=== PATIENT | male | born 1975 | race African-American/Black ===

== ENCOUNTER 2016-03-21 17:03 | Emergency (ER) | payer OTHER ==
[~2016-03-21] VITALS: Ht 170.2 cm; Wt 87.1 kg
[~2016-03-21 17:03] MED LIST: CYCLOBENZAPRINE5 M2 PO; PERCOCET 5-3251 EACH PO
[2016-03-21 17:18] VITALS: BP 153/89
--- NOTE | 2016-03-21 18:21 | ED UPPER/LOWER EXTREMITY COMPL ---
History of Present Illness General Chief Complaint: Lower Extremity Problems Stated Complaint: LEG PAIN XS 1 MONTH Source: patient Exam Limitations: no limitations Vital Signs & Intake/Output Vital Signs & Intake/Output Vital Signs Date Time Temp Pulse Resp B/P Pulse O2 O2 Flow FiO2 Ox Delivery Rate 03/21 1718 99.1 86 20 153/89 96 Room Air Allergies Coded Allergies: NO KNOWN ALLERGIES (03/21/16) Reconcile Medications Cyclobenzaprine HCl 5 MG TABLET 1 TAB PO TID PRN muscle spasm Meloxicam (Mobic) 15 MG TABLET 1 TAB PO DAILY PRN PAIN Methylprednisolone. (Medrol) 4 MG TAB.DS.PK 1 DP PO AD INFLAMMATION 6 on day 1 then reduce by one tablet daily until gone Oxycodone HCl/Acetaminophen (Percocet 5-325 MG Tablet) 1 EACH TABLET 1 TAB PO BID pain Triage Note: TRIAGE: PT TO ER C/C PAIN FROM R BUTTOCK TO CALF X 2 MONTHS, CONSTANT SINCE ONSET. TAKING TYLENOL AND MOTRIN WITH NO RELIEF. NO KNOWN INJURY. Triage Nurses Notes Reviewed? yes Onset: Gradual Duration: constant Severity: moderate Severity Numbers: 5 Method of Injury: unknown HPI: Patient is a 40-year-old male who presents emergency room with a 2 month history of intermittent right leg pain that radiates from his buttock region to the back of his leg down his foot. Patient denies any mechanism of injury. Patient does state that he has complaints of intermittent paresthesias in his foot. Denies any bowel or bladder incontinence or saddle paresthesia. Does complain of chronic intermittent back pain however currently denies any significant back pain. Denies any abdominal pain nausea vomiting or leg swelling. (JASON YO) Past History Travel History Traveled to [place] past 21 day No Medical History Any Pertinent Medical History? 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 No (JASON YO) Review of Systems Review of Systems Constitutional: Reports: no symptoms. EENTM: Reports: no symptoms. Respiratory: Reports: no symptoms. Cardiovascular: Reports: no symptoms. Gastrointestinal/Abdominal: Reports: no symptoms. Genitourinary: Reports: no symptoms. Musculoskeletal: Reports: see HPI, back pain. Skin: Reports: no symptoms. Neurological/Psychological: Reports: see HPI. Hematologic/Endocrine: Reports: no symptoms. Immunological: Reports: no symptoms. All Other Systems: Reviewed and Negative (JASON YO) Physical Exam Physical Exam General Appearance: no apparent distress, alert, comfortable Comments: Well-developed well-nourished person in no acute distress HEENT: Normal EENT exam, extraocular motion intact, no nystagmus. Pupils equally round and reactive to light and accommodation. Nose is atraumatic. External auditory canal and Tympanic membranes clear. Pharynx normal. No swelling or edema. Neck: Supple, no lymphadenopathy, normal range of motion without pain or tenderness Back: Nontender, no CVA tenderness. No central spinous tenderness Cardiovascular: Regular rate and rhythms no murmurs rubs or gallops, normal JVP Respiratory: Chest nontender. No respiratory distress.breath sounds clear to auscultation bilaterally Abdomen: Soft, nontender nondistended, no appreciable organomegaly. Normal bowel sounds. No ascites Extremity: No edema, no calf tenderness to palpation, normal and equal pulses. Neuro: Alert oriented x3, motor sensory normal, cranial nerves II through XII grossly intact. Bilateral lower extremity myotomes dermatomes DTRs intact Positive straight leg raise test Skin: No appreciable rash on exposed skin, skin is warm and dry. Psych: Mood and affect is normal, memory and judgment is normal. (JASON YO) Progress Differential Diagnosis: arterial insufficiency, compartment syndrome, contusion, dislocation, DVT, fracture, gout, septic arthritis, sprain, tendon injury, sPINAL ABSCESS, HERNIATED DISC, SCIATICA, FRACTURE, Plan of Care: Due to history of present illness and exam findings or suspicion of lumbar radiculopathy. Patient had normal steady gait on discharge. Patient was strongly advised to follow-up with primary care doctor as this was referred to patient in the emergency room Patient has no concerns of CUADA EQUINA SYNDROME (JASON YO) Departure Departure Disposition: HOME OR SELF CARE Condition: Stable Clinical Impression Primary Impression: Lumbar radiculopathy Referrals: PATIENT HAS NO PRIMARY CARE DR (PCP/Family) Additional Instructions: As discussed please avoid bending your back forward as this may worsen your symptoms. Begin the prescription of meloxicam for pain and inflammation and a prescription of Medrol Dosepak for inflammation. You have been given a primary care doctor's appointment in the emergency room, please go to this appointment to establish a doctor and for follow-up. If symptoms worsen return to emergency room. Prescriptions are waiting at the [facility] pharmacy Departure Forms: Customer Survey General Discharge Information Prescriptions: Current Visit Scripts Meloxicam (Mobic) 1 TAB PO DAILY PRN PAIN #20 TAB Methylprednisolone. (Medrol) 1 DP PO AD #1 DP 6 on day 1 then reduce by one tablet daily until gone (JASON YO) PA/FRAMEMAN Co-Sign Statement Statement: ED Attending supervision documentation- [] I saw and evaluated the patient. I have also reviewed all the pertinent lab results and diagnostic results. I agree with the findings and the plan of care as documented in the PA's/FRAMEMAN's documentation. [X] I have reviewed the ED Record and agree with the PA's/FRAMEMAN's documentation. [] Additions or exceptions (if any) to the PAs/FRAMEMAN's note and plan are summarized below: [] (PANDA PEREZ,BRIONNA)
[2016-03-21] MEDS ORDERED: MEDROL4 M2 PO (18:41)
[2016-03-21] MEDS ORDERED: MOBIC15 M1 PO (18:41)
== END 2016-03-21 18:59 ==
LOC: ERH 17:03
DX: M54.16 Radiculopathy, lumbar region (principal)

== ENCOUNTER 2016-03-26 14:21 | Emergency (ER) | payer OTHER ==
[~2016-03-26 14:21] MED LIST changes: +MEDROL4 M2 PO; +MOBIC15 M1 PO
[2016-03-26 14:35] VITALS: BP 144/80
--- NOTE | 2016-03-26 15:34 | ED UPPER/LOWER EXTREMITY COMPL ---
History of Present Illness General Chief Complaint: Lower Extremity Injury Stated Complaint: R LEG PAIN Source: patient Exam Limitations: no limitations Vital Signs & Intake/Output Vital Signs & Intake/Output Vital Signs Date Time Temp Pulse Resp B/P Pulse O2 O2 Flow FiO2 Ox Delivery Rate 03/26 1435 97.9 100 20 144/80 96 Room Air Allergies Coded Allergies: NO KNOWN ALLERGIES (03/26/16) Reconcile Medications Cyclobenzaprine HCl 10 MG TABLET 1 TAB PO TID PRN SPASM Cyclobenzaprine HCl 5 MG TABLET 1 TAB PO TID PRN muscle spasm Ibuprofen 800 MG TABLET 1 TAB PO TID PAIN Meloxicam (Mobic) 15 MG TABLET 1 TAB PO DAILY PRN PAIN Methylprednisolone. (Medrol) 4 MG TAB.DS.PK 1 DP PO AD INFLAMMATION 6 on day 1 then reduce by one tablet daily until gone Oxycodone HCl/Acetaminophen (Percocet 5-325 MG Tablet) 5 MG-325 MG TABLET 1 TAB PO Q4-6 PRN BREAKTHROUGH PAIN Oxycodone HCl/Acetaminophen (Percocet 5-325 MG Tablet) 1 EACH TABLET 1 TAB PO BID pain Triage Note: PER PT SEEN THURSDAY NIGHT, CANT GET APPT UNTIL THURSDAY, MELOXICAM NOT WORKING NEED SOMETHING ELSE. Triage Nurses Notes Reviewed? yes Onset: Abrupt Duration: day(s): (FEW) Timing: recent history Severity: moderate Method of Injury: unknown Modifying Factors: Worsens With: movement. HPI: This is a 40 year old male who presents to the ER with chief complaint of low back pain radiaing to his right leg for the past several months. Pain got worse last week and was seen in the ED. Now presents with right foot numbness and tingling. No difficulty with bowel or bladder. He took his last dose of steroids today and states the meloxicam has not been helping. He can't get into see his doctor until the end of the month. Past History Travel History Traveled to [place] past 21 day No Medical History Any Pertinent Medical History? 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 No Review of Systems Review of Systems Constitutional: Denies: chills, fever. EENTM: Reports: no symptoms. Respiratory: Denies: cough, short of breath. Cardiovascular: Denies: chest pain, palpitations. Gastrointestinal/Abdominal: Denies: abdominal pain. Genitourinary: Reports: no symptoms. Musculoskeletal: Reports: back pain, muscle pain. Skin: Reports: no symptoms. Neurological/Psychological: Reports: numbness, tingling. Denies: weakness. Hematologic/Endocrine: Denies: bruising, bleeding. Immunological: Reports: no symptoms. All Other Systems: Reviewed and Negative Physical Exam Physical Exam General Appearance: well developed/nourished, alert, awake, anxious Head: atraumatic, normal appearance Eyes: Bilateral: normal appearance, PERRL, EOMI. 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 (PANDA PEREZ,BRIONNA) Diagnostic Imaging: Viewed by Me: CT Scan. Discussed w/RAD: CT Scan. Radiology Impression: PATIENT: ANTRUM,JASKARAN PRESENT AGE: 40 PATIENT ACCOUNT NO: [id number] : 73 LOCATION: [facility] ORDERING PHYSICIAN: BRIONNA MOSQUEDA MD SERVICE DATE: 03/26/16 EXAM TYPE: CAT - CT LUMB SPINE WO IV CONTRAST EXAMINATION: CT LUMBAR SPINE WITHOUT CONTRAST CLINICAL INFORMATION: Sciatica. Worsening right leg pain and tingling. COMPARISON: MRI of the lumbar spine from 03/27/2012. TECHNIQUE: Helical non-contrast CT images were obtained through the lumbar spine and 1.25 and 2.5 mm axial reconstructions were reviewed along with sagittal and coronal MPRs. DLP: 509 mGy-cm FINDINGS: There is a transitional thoracolumbar vertebral body with diminutive ribs, which will be labeled L1 for the purposes of this report, below which there are 4 additional lumbar vertebral bodies. There is a mild anterior wedging deformity of L1 which was not convincingly present on the 2013 study. Vertebral body height is otherwise maintained. Sagittal alignment is maintained. No retropulsion of bony fragments. There is mild intervertebral disc height loss at L5-S1. Faint vacuum phenomenon is seen at L3-L4. There are small anterior osteophytes at T12-L1 and L1-L2. No evidence of spondylolyses. No significant scoliosis. The aorta is normal in caliber. No adenopathy. The imaged SI joints are mildly degenerated. SPINAL LEVELS: T12-L1: Minor disc bulge without significant canal or foraminal stenosis. Mild facet hypertrophy. L1-L2: Fairly normal disc morphology without canal or foraminal stenosis. Mild facet hypertrophy. L2-L3: Fairly normal disc morphology without canal or foraminal stenosis. L3-L4: Minor disc bulge without significant canal or foraminal stenosis. Mild facet hypertrophy. L4-L5: There is disc bulge with facet hypertrophy and thickening of ligamentum flavum. Mild canal stenosis. Mild bilateral foraminal stenosis. L5-S1: There is disc osteophyte complex asymmetric on the right which appears to contact the traversing right S1 nerve root, fairly similar to the prior study. There is facet hypertrophy. There is moderate bilateral foraminal stenosis contacting the exiting L5 nerve roots, also probably similar to the prior across modalities. IMPRESSION: Mild anterior wedging deformity of L1, which has developed in the interval since 2013, but is currently age indeterminate. Lumbar spondylosis most notable at L5-S1 where asymmetric right greater than left disc osteophyte complex contacts the traversing right S1 nerve root in the subarticular recess, as well as moderately narrowing both foramina contacting the exiting L5 nerve roots, fairly similar to the prior. DICTATED BY: VIKAS LARA MD DATE/TIME DICTATED:03/26/161608 CORK INSULATOR:JIM DATE/TIME TRANSCRIBED:03/26/161608 CONFIDENTIAL, DO NOT COPY WITHOUT APPROPRIATE AUTHORIZATION. <Electronically signed in Other Vendor System> SIGNED BY: VIKAS LARA MD 03/26/16 1632 Departure Departure Time of Disposition: 1649 Disposition: HOME OR SELF CARE Condition: Stable Clinical Impression Primary Impression: Sciatica, right side Referrals: PATIENT HAS NO PRIMARY CARE DR (PCP/Family) Additional Instructions: Take the ibuprofen, flexeril and percocet as directed. Follow up with your appointment on the . Take a copy of your ct scan report to the office. Return as needed. Departure Forms: Customer Survey General Discharge Information Prescriptions: Current Visit Scripts Ibuprofen 1 TAB PO TID #30 TAB Cyclobenzaprine HCl 1 TAB PO TID PRN SPASM #20 TAB Oxycodone HCl/Acetaminophen (Percocet 5-325 MG Tablet) 1 TAB PO Q4-6 PRN BREAKTHROUGH PAIN #15 TAB
--- NOTE | 2016-03-26 16:32 | CT SCAN REPORT ---
EXAMINATION: CT LUMBAR SPINE WITHOUT CONTRAST CLINICAL INFORMATION: Sciatica. Worsening right leg pain and tingling. COMPARISON: MRI of the lumbar spine from 03/27/2012. TECHNIQUE: Helical non-contrast CT images were obtained through the lumbar spine and 1.25 and 2.5 mm axial reconstructions were reviewed along with sagittal and coronal MPRs. DLP: 509 mGy-cm FINDINGS: There is a transitional thoracolumbar vertebral body with diminutive ribs, which will be labeled L1 for the purposes of this report, below which there are 4 additional lumbar vertebral bodies. There is a mild anterior wedging deformity of L1 which was not convincingly present on the 2013 study. Vertebral body height is otherwise maintained. Sagittal alignment is maintained. No retropulsion of bony fragments. There is mild intervertebral disc height loss at L5-S1. Faint vacuum phenomenon is seen at L3-L4. There are small anterior osteophytes at T12-L1 and L1-L2. No evidence of spondylolyses. No significant scoliosis. The aorta is normal in caliber. No adenopathy. The imaged SI joints are mildly degenerated. SPINAL LEVELS: T12-L1: Minor disc bulge without significant canal or foraminal stenosis. Mild facet hypertrophy. L1-L2: Fairly normal disc morphology without canal or foraminal stenosis. Mild facet hypertrophy. L2-L3: Fairly normal disc morphology without canal or foraminal stenosis. L3-L4: Minor disc bulge without significant canal or foraminal stenosis. Mild facet hypertrophy. L4-L5: There is disc bulge with facet hypertrophy and thickening of ligamentum flavum. Mild canal stenosis. Mild bilateral foraminal stenosis. L5-S1: There is disc osteophyte complex asymmetric on the right which appears to contact the traversing right S1 nerve root, fairly similar to the prior study. There is facet hypertrophy. There is moderate bilateral foraminal stenosis contacting the exiting L5 nerve roots, also probably similar to the prior across modalities. IMPRESSION: Mild anterior wedging deformity of L1, which has developed in the interval since 2012, but is currently age indeterminate. Lumbar spondylosis most notable at L5-S1 where asymmetric right greater than left disc osteophyte complex contacts the traversing right S1 nerve root in the subarticular recess, as well as moderately narrowing both foramina contacting the exiting L5 nerve roots, fairly similar to the prior.
[2016-03-26] MEDS ORDERED: IBUPROFEN800 M1 PO (16:53)
[2016-03-26] MEDS ORDERED: PERCOCET 5-3251 EACH PO (16:53)
[2016-03-26] MEDS ORDERED: CYCLOBENZAPRINE10 M1 PO (16:53)
== END 2016-03-26 17:12 ==
LOC: ERH 14:21
DX: M54.41 Lumbago with sciatica, right side (principal)
CPT/HCPCS: 96372; J1885

== ENCOUNTER 2016-08-13 16:21 | Emergency (ER) | payer OTHER ==
[~2016-08-13] VITALS: Ht 170.2 cm; Wt 78.9 kg
[~2016-08-13 16:21] MED LIST changes: +CYCLOBENZAPRINE10 M1 PO; +IBUPROFEN800 M1 PO
[2016-08-13 16:27] VITALS: BP 130/80
[2016-08-13] MEDS ORDERED: AMOXICILLIN500 M3 PO (17:20)
[2016-08-13] MEDS ORDERED: PERCOCET 5-3251 EACH PO (17:20)
--- NOTE | 2016-08-13 17:22 | ED THROAT/DENTAL COMPLAINT ---
History of Present Illness General Chief Complaint: Sore Throat, Dental Pain Stated Complaint: TOOTHACHE X 2 DAYS Source: patient Exam Limitations: no limitations Vital Signs & Intake/Output Vital Signs & Intake/Output Vital Signs Date Time Temp Pulse Resp B/P B/P Pulse O2 O2 Flow FiO2 Mean Ox Delivery Rate 08/13 1627 98.4 99 18 130/80 100 Room Air Allergies Coded Allergies: NO KNOWN ALLERGIES (03/26/16) Reconcile Medications Amoxicillin 500 MG TABLET 1 TAB PO TID dental infection Cyclobenzaprine HCl 10 MG TABLET 1 TAB PO TID PRN SPASM Cyclobenzaprine HCl 5 MG TABLET 1 TAB PO TID PRN muscle spasm Ibuprofen 800 MG TABLET 1 TAB PO TID PAIN Meloxicam (Mobic) 15 MG TABLET 1 TAB PO DAILY PRN PAIN Methylprednisolone. (Medrol) 4 MG TAB.DS.PK 1 DP PO AD INFLAMMATION 6 on day 1 then reduce by one tablet daily until gone Oxycodone HCl/Acetaminophen (Percocet 5-325 MG Tablet) 5 MG-325 MG TABLET 1 TAB PO Q4-6 PRN BREAKTHROUGH PAIN Oxycodone HCl/Acetaminophen (Percocet 5-325 MG Tablet) 5 MG-325 MG TABLET 1-2 TAB PO Q4-6 PRN dental pain Oxycodone HCl/Acetaminophen (Percocet 5-325 MG Tablet) 1 EACH TABLET 1 TAB PO BID pain Triage Note: PT TO ED FOR DENTAL PAIN, HAS APPT WITH DENTIST AT 10 AM TOMORROW. Triage Nurses Notes Reviewed? yes Onset: Gradual Duration: day(s): (2) Timing: recent history Injury Environment: home Severity: moderate Severity Numbers: 7 Modifying Factors: Worsens With: other (trying to eat). HPI: Patient is a 40-year-old male with history of back pain presenting to the emergency department with chief complaint of left upper and lower dental pain that began about 2 days ago progressively getting worse. Denies any specific trauma. No fevers or chills. Tried calling a dentist, unable to get in. Has not seen a dentist in several years. He did have a filling on the left lower molars which has been chipped. Has been using Tylenol without relief. No numbness or tingling. The pain radiates up to the left ear at times. Denies any trouble swallowing. No chest pain palpitations or shortness of breath. (LAVELL FAY) Past History Travel History Traveled to [place] past 21 day No Medical History Any Pertinent Medical History? 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 No (LAVELL FAY) Review of Systems Review of Systems Constitutional: Reports: no symptoms. Comments Review of systems: See HPI, All other systems negative. Constitutional, no chills fever or weight loss HEENT: No visual changes no sore throat no congestion Cardiovascular: No chest pain ,palpitation Skin, no jaundice no rashes Respiratory: No dyspnea cough sputum or hemoptysis GI: No nausea no vomiting Muscle skeletal: no back pain, no neck pain, Neurologic: No numbness no headaches Psych: No stress anxiety or depression,. Heme/endocrine: No bruising no bleeding no polyuria or polydipsia Immunology: No splenectomy or history of AIDS (LAVELL FAY) Physical Exam Physical Exam General Appearance: well developed/nourished, no apparent distress, alert, awake , comfortable Mouth/Throat: poor dentition Comments: Well-developed well-nourished person in no acute distress HEENT: Pupils equally round and reactive to light and accommodation. Nose is atraumatic. External auditory canal and Tympanic membranes clear. Pharynx normal. No swelling or edema. Mild erythema along the lower left gum line, no palpable abscess. Tender to palpation along the left mandible. There is a filling noted to be checked on the left lower molar. Clearing secretions without difficulty. Uvula midline. Neck: Supple, no lymphadenopathy, normal range of motion without pain or tenderness Back: Nontender, no CVA tenderness. Full range of motion Respiratory: No respiratory distress. Extremity: No edema Neuro: Alert oriented x3 Skin: No appreciable rash on exposed skin, skin is warm and dry. Psych: Mood and affect is normal, memory and judgment is normal. Core Measures ACS in differential dx? No Severe Sepsis Present: No Septic Shock Present: No (LAVELL FAY) Progress Differential Diagnosis: dental abscess, dental miley, dental pain, acute dental trauma, dental fx Plan of Care: Mild erythema along the left lower gumline. No signs of abscess. Patient given a dentist to follow-up with. He'll be treated symptomatically with pain medication. Also given prophylactic antibiotics likely dental caries. Patient will return for any worsening symptoms or concerns. Patient nontoxic. (LAVELL FAY) Departure Departure Time of Disposition: 1718 Disposition: HOME OR SELF CARE Condition: Stable Clinical Impression Primary Impression: Dental caries Ruled Out Impressions: Dental caries associated with enamel hypomineralization Referrals: OC FIGUEROA APRN (PCP/Family) DEYA TERRY DMD Additional Instructions: Follow-up with a dentist call to make an appointment. Take antibiotics and pain medication as prescribed. Return for worsening symptoms or concerns. Departure Forms: Customer Survey General Discharge Information Prescriptions: Current Visit Scripts Oxycodone HCl/Acetaminophen (Percocet 5-325 MG Tablet) 1-2 TAB PO Q4-6 PRN dental pain #10 TAB Amoxicillin 1 TAB PO TID #21 TAB (LAVELL FAY) PA/ONCOLOGY PHARMACIST Co-Sign Statement Statement: ED Attending supervision documentation- [] I saw and evaluated the patient. I have also reviewed all the pertinent lab results and diagnostic results. I agree with the findings and the plan of care as documented in the PA's/ONCOLOGY PHARMACIST's documentation. [X] I have reviewed the ED Record and agree with the PA's/ONCOLOGY PHARMACIST's documentation. [] Additions or exceptions (if any) to the PAs/ONCOLOGY PHARMACIST's note and plan are summarized below: [] (FAHAD TIJERINA DO)
== END 2016-08-13 17:30 ==
LOC: ERH 16:21
DX: K02.9 Dental caries, unspecified (principal)